=== PATIENT | male | born 1980 | race Caucasian/White ===

== ENCOUNTER 2019-12-14 08:57 | Day surgery (SDC) | payer OTHER ==
[2019-12-09 13:05] LABS: BASOPHILS % (AUTO) 0.8 % (0.0-5.0); EOSINOPHILS % (AUTO) 1.8 % (0.0-8.0); HEMATOCRIT 45.9 % (42-54); LYMPHOCYTES % (AUTO) 30.5 % (21.0-51.0); MEAN CORPUSCULAR HEMOGLOBIN 29.6 pg (27.0-33.0); MEAN CORPUSCULAR HGB CONC 32.7 g/dL (32.0-36.0); MEAN CORPUSCULAR VOLUME 90.5 fL (79-99); MONOCYTES % (AUTO) 8.2 % (3.0-13.0); NEUTROPHILS % (AUTO) 58.1 % (40.0-77.0); PLATELET COUNT (AUTO) 194 K/uL (130-400); RED BLOOD CELL COUNT(AUTO) 5.07 MIL/uL (4.50-6.20); RED CELL DISTRIBUTION WIDTH 12.3 % (11.0-15.5); WHITE BLOOD COUNT (AUTO) 6.6 K/uL (4.8-10.8)
[2019-12-09 13:20] LABS: INR 1.02 (0.85-1.15); PARTIAL THROMBOPLASTIN TIME 29.2 SEC (26.3-35.5); PROTHROMBIN TIME 10.7 SEC (9.6-11.6)
[2019-12-09 13:22] LABS: POTASSIUM 4.1 mmol/L (3.5-5.1)
[2019-12-09 13:24] VITALS: BP 127/77
[~2019-12-14] VITALS: Ht 171.4 cm; Wt 95.7 kg
[2019-12-14] VITALS (12 sets, daily range): BP systolic 101–145; BP diastolic 64–95
[~2019-12-14 08:57] MED LIST: LIDOCAINE HCL 2% VISCOUS 15 ML UDCUP PO SCH; METO-391 PO; PRAV40TA3 PO; SODIUM CHLORIDE 0.9% 1000ML 1,000 ML IV SCH
[2019-12-14] MEDS ORDERED: MIDAZOLAM HCL 1 MG/ML 2ML VIAL ONE (10:23)
[2019-12-14] MEDS ORDERED: FENTANYL CITRATE PF 50 MCG/1 ML 2ML VIAL ONE (10:23)
== END 2019-12-14 13:30 | disposition home or self-care (01) ==
LOC: DAH 08:57 → EDSTATUS 12:00 → DAH 13:30
PROVIDERS: ATTEND Internal Medicine Cardiovascular Disease
DX: R47.01 Aphasia (principal); I10 Essential (primary) hypertension; E78.5 Hyperlipidemia, unspecified; Z88.8 Allergy status to other drugs, medicaments and biological substances; Z91.013 Allergy to seafood; Z79.899 Other long term (current) drug therapy; Z82.49 Family history of ischemic heart disease and other diseases of the circulatory system
CPT/HCPCS: 36415; 80048; 85025; 85610; 85730; 93312; 93325; A4215; A4216; A4221; A4222; A4223 ×3; A4606; A4663; J2250; J3010; 93313; 99152

== ENCOUNTER → 2022-09-05 | Outpatient (CLI) | payer OTHER ==
[~2022-09-05] MED LIST changes: -LIDOCAINE HCL 2% VISCOUS 15 ML UDCUP PO SCH; -SODIUM CHLORIDE 0.9% 1000ML 1,000 ML IV SCH
== END | disposition home or self-care (01) ==
LOC: RAH 13:46
PROVIDERS: ATTEND Internal Medicine Cardiovascular Disease
DX: Z13.6 Encounter for screening for cardiovascular disorders (principal)
CPT/HCPCS: 75571